=== PATIENT | male | born 1970 | race Caucasian/White ===

== ENCOUNTER 2016-08-23 20:39 | Emergency (ER) | payer OTHER ==
[~2016-08-23] VITALS: Ht 182.9 cm; Wt 84.5 kg
[2016-08-23 20:46] VITALS: Ht 182.9 cm; Wt 84.5 kg
[2016-08-23] MEDS ORDERED: AMOX1TAB9 PO (22:20)
[2016-08-23] MEDS ORDERED: IBUP-1542 PO (22:22)
--- NOTE | 2016-08-25 13:32 | ERA ---
ER Documentation Chief Complaint Date/Time DATE: 08/25/16 TIME: 13:28 Chief Complaint Swollen jaw. Dental pain HPI This is an otherwise healthy 46-year-old female presenting with a chief complaint of toothache. Patient has had a chronic toothache in the lower left jaw that has been worsening over the past 3 days. Patient has a dentist appointment for 2 days from now. Patient denies any discharge, oral mucosal swelling, difficulty breathing, cough, pharyngitis, difficulty swallowing, or fever. Patient states that the pain is worse when he is chewing. Patient has not taken any medications to improve the pain at this time. ROS All systems reviewed and are negative except as per history of present illness. Medications Home Meds Active Scripts Ibuprofen* (Motrin*) 600 Mg Tab, 600 MG PO Q6, #30 TAB Prov:RAPHAEL COBB PA-C 08/23/16 Amoxicillin/Potassium Clav (Amox-Clav 500-125 mg Tablet) 500-125 mg Tab, 1 TAB PO Q8 for 7 Days, #21 TAB Prov:RAPHAEL COBB PA-C 08/23/16 Allergies Allergies: Coded Allergies: No Known Allergy (Unverified , 08/23/16) PMhx/Soc History of Surgery: No Anesthesia Reaction: No Hx Neurological Disorder: No Hx Respiratory Disorders: No Hx Cardiac Disorders: No Hx Psychiatric Problems: No Hx Miscellaneous Medical Probl: Yes (HEP C.) Hx Alcohol Use: No Hx Substance Use: Yes ("OCCASSIONAL COCAINE") Hx Tobacco Use: Yes (1PPD) Smoking Status: Current every day smoker Physical Exam Vitals Vital Signs Date Time Temp Pulse Resp B/P Pulse Ox O2 Delivery O2 Flow Rate FiO2 08/23/16 20:46 98.3 94 20 112/70 96 Physical Exam Const: Well-appearing well-developed 46-year-old male in no acute distress. No fever. Head: Atraumatic Eyes: Normal Conjunctiva ENT: Markedly swollen left lower jaw. Mild tenderness over the affected area. No noticeable poor dentition. Normal External Ears, Nose. No deviation of the uvula. No stridor or tripoding. No swelling of the oral mucosa noted. Neck: Full range of motion..~ No meningismus. Resp: Clear to auscultation bilaterally Cardio: Regular rate and rhythm, no murmurs Abd: Soft, non tender, non distended. Normal bowel sounds Skin: No petechiae or rashes. No cellulitis noted. Back: No midline or flank tenderness Ext: No cyanosis, or edema Neur: Awake and alert Psych: Normal Mood and Affect Procedures/MDM Patient has been worked up and evaluated for left lower jaw pain. Patient has noticeable swelling on physical examination as a dentist appointment within the next week. We will go ahead and discharge patient with antibiotics and NSAIDs for pain management. I have given the patient discharge instructions with return precautions and I have told him specifically with acknowledgment to return to the emergency department immediately if any trouble breathing ensues. Patient's vitals are stable and current condition is appropriate for discharge. Departure Diagnosis: Primary Impression: Toothache Additional Impression: Tooth ache Condition: Stable Patient Instructions: Dental Abscess, Dental Pain Additional Instructions: Follow up with your PCP within the next 1-3 days for a more thorough evaluation and a possible referral to a specialist. Return the the emergency department immediately if symptoms worsen or change. If you have any questions regarding medications, ask your pharmacist or us before you leave. If any adverse reactions occur while taking your medications, discontinue the treatment and return to the emergency department immediately. Take your medications as directed, and complete the entire course of treatment. RAPHAEL COBB PA-C August 25, 2016 13:32
== END 2016-08-23 22:33 | disposition home or self-care (01) ==
LOC: FTE 20:39
DX: K08.89 Other specified disorders of teeth and supporting structures (principal); F17.210 Nicotine dependence, cigarettes, uncomplicated
CPT/HCPCS: 99283

== ENCOUNTER 2017-07-27 18:16 | Observation (INO) | END 2017-07-28 11:20 | disposition home or self-care (01) ==